=== PATIENT | female | born 1980 | race Two or more races ===

== ENCOUNTER 2016-05-28 13:00 | Observation (INO) | payer MEDICAID ==
[2016-05-28] MEDS ORDERED: TERBUTALINE SULFATE 1 MG/ML 1ML VIAL SC ONE (14:05)
[2016-05-28] MEDS ORDERED: LACTATED RINGER'S 1,000 ML IV ONE (14:07)
[2016-05-28] MEDS ORDERED: TERBUTALINE SULFATE 1 MG/ML 1ML VIAL SC SCH (14:15)
== END 2016-05-28 16:45 | disposition home or self-care (01) | DRG 566 ==
LOC: LDRP 13:00
PROVIDERS: ADMIT Specialist; ATTEND Specialist
DX: O62.9 Abnormality of forces of labor, unspecified (principal); O26.893 Other specified pregnancy related conditions, third trimester; M54.9 Dorsalgia, unspecified; R10.9 Unspecified abdominal pain; O09.523 Supervision of elderly multigravida, third trimester; Z3A.36 36 weeks gestation of pregnancy
CPT/HCPCS: 96372; G0378; J3105; 59025; 81002

== ENCOUNTER 2016-06-13 07:35 | Inpatient (IN) | payer MEDICAID ==
[2016-06-13] VITALS (8 sets, daily range): BP systolic 98–134; BP diastolic 48–89
[~2016-06-13] VITALS: Ht 157.5 cm; Wt 82.6 kg
[2016-06-13 08:46] LABS: Basophils # (auto) 0 uL; Basophils % (auto) 0.4 % (0.0-2.0); Eosinophils # (auto) 0.1 uL; Hematocrit 35.2 % (36.0-46.0); Hemoglobin 11.9 g/dL (12.2-16.2); Lymphocytes # (auto) 2.1 uL; Lymphocytes % (auto) 26.4 % (10.0-50.0); Mean Corpuscular Hemoglobin 28.8 pg (28.0-32.0); Mean Corpuscular Hgb Conc. 33.7 g/dL (32.0-36.0); Mean Corpuscular Volume 85.5 fL (80.0-100.0); Monocytes # (auto) 0.3 uL; Monocytes % (auto) 3.9 % (0.0-12.0); Neutrophils # (auto) 5.5 uL; Neutrophils % (auto) 68.3 % (37.0-80.0); Platelet Count (auto) 231 10^3/uL (140-450); White Blood Cell 8.1 10^3/uL (4.4-10.8)
[2016-06-13 08:58] LABS: Urine Bilirubin Negative (Negative); Urine Color Yellow (Yellow); Urine Glucose Normal (Normal); Urine Ketone Negative (Negative); Urine Mucus FEW (None Seen); Urine Nitrite Negative (Negative); Urine RBC 30 /hpf (0 - 4); Urine Squamous Epithelial Cell MOD /hpf (<5); Urine Urobilinogen Normal (Negative); Urine pH 6.5 (5.0-8.0)
[2016-06-13 08:59] LABS: Albumin 2.4 g/dL (3.4-5.0); BUN/Creatinine Ratio 11.3; Bilirubin, Total 0.3 mg/dL (0.2-1.0); Calcium 8.6 mg/dL (8.5-10.1); Potassium 3.6 mmol/L (3.5-5.1); Total Protein 6.9 g/dL (6.4-8.2)
[2016-06-13 09:05] LABS: INR 0.93 (0.9-1.15); Partial Thromboplastin Time 27.2 sec (22.64-33.71)
[2016-06-13 09:07] LABS: Urine Blood 1+ /uL (Negative)
[2016-06-13] MEDS ORDERED: PREN-96 PO (09:24)
[2016-06-13] MEDS ORDERED: TETRACAINE 1% INJ 2 ML VIAL IJ ONE (12:06)
[2016-06-13] MEDS ORDERED: MORPHINE SULF(PF) 0.5MG/ML 10ML VIAL ONE (12:07)
[2016-06-13] MEDS ORDERED: fentaNYL CITRATE 100 MCG/2 ML VL ONE (12:07)
[2016-06-13] MEDS ORDERED: ceFAZolin 1GM VL ONE (12:08)
[2016-06-13] MEDS ORDERED: diphenhdrAMINE HCL 50 MG/1 ML VL ONE (12:08)
[2016-06-13] MEDS ORDERED: OXYTOCIN 10 UNIT/ML 10ML VIAL ONE (12:08)
[2016-06-13] MEDS ORDERED: ONDANSETRON HCL 4 MG/2 ML VIAL ONE (12:08)
[2016-06-13] MEDS ORDERED: KETOROLAC TROMETH 30 MG/ML 1ML VIAL ONE (12:08)
[2016-06-13] MEDS ORDERED: CLINDAMYCIN 600MG IV 50 ML IV ONE (12:19)
[2016-06-13] MEDS ORDERED: KETOROLAC TROMETH 30 MG/ML 1ML VIAL IV PRN ×2 (13:15→13:45)
[2016-06-13] MEDS ORDERED: MORPHINE SULF INJ 2 MG/ML SYRINGE 1ML IV PRN (13:15)
[2016-06-13] MEDS ORDERED: ONDANSETRON HCL 4 MG/2 ML VIAL IV PRN ×2 (13:15→13:45)
[2016-06-13] MEDS ORDERED: OXYTOCIN 10UNIT/ML 1ML VIAL ONE (13:38)
[2016-06-13] MEDS ORDERED: diphenhdrAMINE HCL 50 MG/1 ML VL IV PRN (13:45)
[2016-06-13] MEDS ORDERED: HYDROmorphone HCL 2 MG/ML VL IV PRN ×3 (13:45)
[2016-06-13] MEDS ORDERED: DEXAMETHASONE SOD PHOS 10MG/1ML VIAL INJ IV PRN (13:45)
[2016-06-13] MEDS ORDERED: NALOXONE HCL 0.4 MG/ML VIAL IV PRN ×2 (13:45)
[2016-06-13] MEDS ORDERED: ONDANSETRON HCL 4 MG/2 ML VIAL IV ONE (13:45)
[2016-06-13] MEDS ORDERED: PROCHLORPERAZINE EDISYLATE 5 MG/ML 2ML VIAL IV ONE (17:15)
[2016-06-13] MEDS: CLINDAMYCIN 900MG IV 50 ML IV SCH (20:06)
[2016-06-13 21:10] LABS: Basophils # (auto) 0 uL; Basophils % (auto) 0.2 % (0.0-2.0); Eosinophils # (auto) 0 uL; Hematocrit 34.9 % (36.0-46.0); Hemoglobin 11.5 g/dL (12.2-16.2); Lymphocytes # (auto) 1.1 uL; Lymphocytes % (auto) 9.5 % (10.0-50.0); Mean Corpuscular Hemoglobin 28.4 pg (28.0-32.0); Mean Corpuscular Hgb Conc. 32.9 g/dL (32.0-36.0); Mean Corpuscular Volume 86.3 fL (80.0-100.0); Mean Platelet Volume 8.7 fL (7.4-10.4); Monocytes # (auto) 0.2 uL; Monocytes % (auto) 1.4 % (0.0-12.0); Neutrophils # (auto) 9.8 uL; Neutrophils % (auto) 88.9 % (37.0-80.0); Platelet Count (auto) 235 10^3/uL (140-450); Red Cell Distribution Width 15.1 % (11.6-16.0); White Blood Cell 11.1 10^3/uL (4.4-10.8)
[2016-06-13] MEDS: LACTATED RINGER'S 1,000 ML IV SCH (22:16)
[2016-06-14] VITALS (10 sets, daily range): BP systolic 104–121; BP diastolic 51–71
[2016-06-14] MEDS: LACT. RINGERS/OXYTOCIN 20UNITS 1,000 ML IV SCH ×2 (04:10→04:11)
[2016-06-14] MEDS: CLINDAMYCIN 900MG IV 50 ML IV SCH ×2 (04:10→13:05)
[2016-06-14] MEDS: LACTATED RINGER'S 1,000 ML IV SCH (04:26)
[2016-06-14 05:54] LABS: Basophils # (auto) 0 uL; Basophils % (auto) 0.3 % (0.0-2.0); Eosinophils # (auto) 0 uL; Eosinophils % (auto) 0.1 % (0.0-7.0); Hematocrit 30.2 % (36.0-46.0); Hemoglobin 9.9 g/dL (12.2-16.2); Lymphocytes # (auto) 2.3 uL; Lymphocytes % (auto) 22.7 % (10.0-50.0); Mean Corpuscular Hemoglobin 28.6 pg (28.0-32.0); Mean Corpuscular Hgb Conc. 32.8 g/dL (32.0-36.0); Mean Corpuscular Volume 87.3 fL (80.0-100.0); Mean Platelet Volume 8.7 fL (7.4-10.4); Monocytes # (auto) 0.6 uL; Monocytes % (auto) 5.6 % (0.0-12.0); Neutrophils # (auto) 7.3 uL; Neutrophils % (auto) 71.3 % (37.0-80.0); Platelet Count (auto) 210 10^3/uL (140-450); Red Cell Distribution Width 14.8 % (11.6-16.0); White Blood Cell 10.3 10^3/uL (4.4-10.8)
[2016-06-14] MEDS: HYDROcodone-ACET 5/325MG TAB PO PRN ×3 (09:13→19:21)
[2016-06-14] MEDS: DOCUSATE SOD 100 MG CAP PO SCH ×2 (09:19→22:14)
[2016-06-15 00:30] VITALS: BP 123/60
[2016-06-15 03:30] VITALS: BP 123/72
[2016-06-15] MEDS: HYDROcodone-ACET 5/325MG TAB PO PRN ×3 (08:23→15:38)
[2016-06-15 08:28] VITALS: BP 123/63
[2016-06-15] MEDS: DOCUSATE SOD 100 MG CAP PO SCH ×2 (09:57→21:41)
[2016-06-15 12:14] VITALS: BP 121/70
[2016-06-15] MEDS: SODIUM CHLOR 0.9% PF (SALINE LOCK) 10ML VIAL IV SCH ×2 (14:00→22:00)
[2016-06-15 16:30] VITALS: BP 132/67
[2016-06-15 20:06] VITALS: BP 136/86
[2016-06-16 00:14] VITALS: BP 140/70
[2016-06-16 03:53] VITALS: BP 130/60
[2016-06-16 04:24] VITALS: BP 119/63
[2016-06-16] MEDS: SODIUM CHLOR 0.9% PF (SALINE LOCK) 10ML VIAL IV SCH ×3 (06:00→22:14)
[2016-06-16] MEDS ORDERED: TETANUS-DIPTH-ACEL PERTUSSIS 0.5ML SYRG IM ONE (07:30)
[2016-06-16 08:00] VITALS: BP 130/69
[2016-06-16] MEDS: HYDROcodone-ACET 5/325MG TAB PO PRN ×4 (08:58→22:15)
[2016-06-16] MEDS: DOCUSATE SOD 100 MG CAP PO SCH ×2 (08:59→22:14)
[2016-06-16 11:47] VITALS: BP 133/76
[2016-06-16] MEDS: IBUPROFEN 800 MG TAB PO PRN ×2 (12:51→21:00)
[2016-06-17] VITALS (7 sets, daily range): BP systolic 115–142; BP diastolic 75–88
[2016-06-17] MEDS: HYDROcodone-ACET 5/325MG TAB PO PRN ×4 (02:59→17:40)
[2016-06-17] MEDS: IBUPROFEN 800 MG TAB PO PRN (05:56)
[2016-06-17] MEDS: SODIUM CHLOR 0.9% PF (SALINE LOCK) 10ML VIAL IV SCH ×2 (06:18→14:00)
[2016-06-17] MEDS: DOCUSATE SOD 100 MG CAP PO SCH (10:00)
== END 2016-06-17 22:33 | disposition home or self-care (01) | DRG 540 ==
LOC: LDRP 07:35
PROVIDERS: ADMIT Specialist; ATTEND Specialist
PROC: 10D00Z1 Extraction of Products of Conception, Low, Open Approach (ICD-10-PCS; principal; 2016-06-13 12:17)
PROC: 3E0234Z Introduction of Serum, Toxoid and Vaccine into Muscle, Percutaneous Approach (ICD-10-PCS; 2016-06-16)
DX: O69.81X0 Labor and delivery complicated by cord around neck, without compression, not applicable or unspecified (principal); O24.429 Gestational diabetes mellitus in childbirth, unspecified control; K66.0 Peritoneal adhesions (postprocedural) (postinfection); O99.62 Diseases of the digestive system complicating childbirth; O34.211 Maternal care for low transverse scar from previous cesarean delivery; Z37.0 Single live birth; Z3A.39 39 weeks gestation of pregnancy; Z23 Encounter for immunization
CPT/HCPCS: 36415; 51702; 59025; 80053; 81001; 82948; 82962; 85025; 85610; 85730; 86850; 86900; 86901; 90715; 94762; 96361; 96365; 96366; 96375; J0690; J1885; J2405; J2590; J3490